=== PATIENT | male | born 1965 | race Caucasian/White ===

== ENCOUNTER 2017-09-18 11:20 | Outpatient (CLI) | payer BC ==
--- NOTE | 2017-09-18 14:10 | ULT ---
SCROTAL SONOGRAM WITH DUPLEX EVALUATION: Date: 09/18/17 HISTORY: Abnormal testosterone levels. FINDINGS: Right testicle is 3.2 cm length and left is 3.8 cm. Each has a normal sonographic appearance with goo d color and spectral Doppler flow. No evidence of extratesticular mass or fluid. IMPRESSION: Normal scrotal sonogram. POS: [facility]
== END 2017-09-18 11:21 | disposition home or self-care (01) ==
LOC: SCSULT 11:20
PROVIDERS: ATTEND Family Medicine
DX: R79.89 Other specified abnormal findings of blood chemistry (principal)
CPT/HCPCS: 76870; 93976

== ENCOUNTER 2021-08-13 09:30 | Inpatient (IN) | payer BC ==
[2021-08-13 14:57] LABS: #Basophils 0.1 10x3/uL (0.0-0.2); #Eosinphils 0.7 10x3/uL (0.0-0.5); #Monocytes 0.6 10x3/uL (0.0-1.1); #Neutrophils 1.7 10x3/uL (1.5-8.4); %Basophils 2.2 % (0.0-2.0); %Eosinophils 13.9 % (0.0-6.0); %Lymphocytes 37.8 % (18.0-47.0); %Monocytes 12.2 % (0.0-10.0); %Neutrophils 33.7 % (40.0-75.0); Hemoglobin 12.5 g/dL (13.5-17.5); Mean Corpuscular Hemoglobin 31.8 pg (27.0-33.0); Mean Corpuscular Volume 96.4 fl (81.2-95.1); Mean Platelet Volume 9.1 fl (7.4-10.4); Platelet Count 182 10x3/uL (150-450); RBC Distribution Width 12.8 % (11.5-14.5); Red Blood Cell (RBC) Count 3.93 10x6/uL (4.32-5.72); White Blood Cell (WBC) Count 4.9 10x3/uL (3.5-10.5)
[2021-08-13 15:26] LABS: Anion Gap 12 mmol/L (10-20); BUN (Urea Nitrogen) 15 mg/dL (8.4-25.7); Calc. Creatinine Clearance 0 mL/min (70-130); Calcium 9.6 mg/dL (7.8-10.44); Carbon Dioxide 25 mmol/L (22-29); Chloride 106 mmol/L (98-107); Glucose 80 mg/dL (70-105); Potassium 4.4 mmol/L (3.5-5.1); Sodium 139 mmol/L (136-145)
[2021-08-16 09:53] VITALS: BMI 25.7
[2021-08-17] MEDS ORDERED: fentaNYL Citrate/PF 100 MCG/2 ML SYRINGE ONE (06:52)
[2021-08-17] MEDS ORDERED: Heparin 5,000 UNITS/ML VIAL ONE (06:54)
[2021-08-17] MEDS ORDERED: Protamine Sulfate 50 MG/5 ML VIAL ONE (06:54)
[2021-08-17] MEDS ORDERED: Bupivacaine 0.25% HCL 30 ML VIAL ONE (06:54)
[2021-08-17] MEDS ORDERED: EPINEPHrine 1 MG/ML AMP ONE (06:54)
[2021-08-17] MEDS ORDERED: CEFAZOLIN 2 GM VIAL ONE (06:56)
[2021-08-17] MEDS ORDERED: Sodium Chloride 0.9% 100 ML ONE (06:56)
[2021-08-17] MEDS ORDERED: Dexamethasone 20 MG/5 ML VIAL ONE (08:20)
[2021-08-17] MEDS ORDERED: Glycopyrrolate 0.2 MG/ML 5 ML SYRINGE ONE (08:20)
[2021-08-17] MEDS ORDERED: Ondansetron PF 4 MG/2 ML Vial ONE (08:20)
[2021-08-17] MEDS ORDERED: Heparin 10,000 UNITS/ 10 ML VIAL ONE (09:34)
[2021-08-17] MEDS ORDERED: Acetaminophen 325 MG TAB PO PRN (10:24)
[2021-08-17] MEDS ORDERED: Ondansetron PF 4 MG/2 ML Vial IVP PRN (10:24)
[2021-08-17] MEDS ORDERED: Fentanyl 100 MCG/2 ML VIAL SLOW IVP PRN ×2 (10:24)
[2021-08-17] MEDS ORDERED: HYDROcodone/Acetaminophen 5/325 mg Tablet PO PRN (10:24)
[2021-08-17] MEDS ORDERED: Sodium Chloride 0.9% 1,000 ML IV SCH (10:30)
[2021-08-17] MEDS ORDERED: Promethazine HCl 25 MG/ML VIAL IM PRN (10:30)
[2021-08-17] MEDS ORDERED: ceFAZolin 2 GM/Dextrose 50 ML 2 GM in Premix Bag 1 BAG IVPB SCH (10:30)
[2021-08-17] MEDS ORDERED: Aspirin 81 mg Enteric Coated Tablet PO SCH (10:30)
[2021-08-17] MEDS ORDERED: Promethazine HCl 25 MG/ML VIAL IVPB PRN (10:30)
[2021-08-17] MEDS ORDERED: Ondansetron HCl/PF 4 MG/2 ML Vial IVP PRN (10:30)
[2021-08-17] MEDS ORDERED: Fentanyl 100 MCG/2 ML VIAL ONE (10:43)
[2021-08-17] MEDS ORDERED: Aspirin 325 mg Enteric Coated Tablet PO SCH (11:00)
[2021-08-17] MEDS: Ketorolac Tromethamine 30 MG/ML VIAL IVP SCH ×2 (14:20→22:24)
[2021-08-17] MEDS: CEFAZOLIN 2 GM in Sodium Chloride 0.9% 100 ML IVPB SCH ×2 (14:21→22:33)
[2021-08-17] MEDS: HYDROcodone/Acetaminophen 5/325 mg Tablet PO PRN ×2 (15:24→20:14)
[2021-08-17] MEDS: Zolpidem Tartrate 5 MG TAB PO PRN ×2 (20:16→22:21)
[2021-08-17] MEDS ORDERED: Amitriptyline HCl 100 MG TAB PO SCH (21:00)
[2021-08-18] MEDS: HYDROcodone/Acetaminophen 5/325 mg Tablet PO PRN (04:33)
[2021-08-18] MEDS: Ketorolac Tromethamine 30 MG/ML VIAL IVP SCH (06:01)
[2021-08-18] MEDS: CEFAZOLIN 2 GM in Sodium Chloride 0.9% 100 ML IVPB SCH (06:02)
[2021-08-18 06:33] LABS: #Basophils 0.1 thou/uL (0.0-0.2); #Eosinphils 0.1 thou/uL (0.0-0.7); #Lymphocytes 2.4 thou/uL (1.20-3.40); #Monocytes 1.2 thou/uL (0.11-0.59); #Neutrophils 5.5 thou/uL (1.40-6.50); %Basophils 0.6 % (0.0-1.0); %Eosinophils 1.3 % (0.0-10.0); %Lymphocytes 25.6 % (21.0-51.0); %Monocytes 12.8 % (0.0-10.0); %Neutrophils 59.6 % (42.0-75.0); Hemoglobin 10.9 g/dL (14.0-18.0); Mean Corpuscular HGB CONC 31.4 g/dL (32.0-36.0); Mean Corpuscular Hemoglobin 32.4 pg (27.0-31.0); Mean Platelet Volume 7.2 fL (7.4-10.4); Platelet Count 159 thou/uL (130-400); Red Blood Cell (RBC) Count 3.36 mill/uL (4.70-6.10); White Blood Cell (WBC) Count 9.3 thou/uL (4.8-10.8)
[2021-08-18 08:10] VITALS: TEMP 98.1
[2021-08-18] MEDS ORDERED: Aspirin Chewable 81 MG TAB PO SCH (09:00)
[2021-08-18 09:08] VITALS: BP 116/81
== END 2021-08-18 10:27 | disposition home or self-care (01) | DRG 253 ==
LOC: SURG A 08-17 06:11 → T4-B 08-17 14:03
PROVIDERS: ADMIT Thoracic Surgery (Cardiothoracic Vascular Surgery); ATTEND Thoracic Surgery (Cardiothoracic Vascular Surgery)
PROC: 041M0JL Bypass Right Popliteal Artery to Popliteal Artery with Synthetic Substitute, Open Approach (ICD-10-PCS; principal; 2021-08-17)
DX: I70.211 Atherosclerosis of native arteries of extremities with intermittent claudication, right leg (principal); I70.92 Chronic total occlusion of artery of the extremities; Z20.822 Contact with and (suspected) exposure to COVID-19; M06.9 Rheumatoid arthritis, unspecified; F32.A Depression, unspecified; F41.9 Anxiety disorder, unspecified; Z98.890 Other specified postprocedural states; Z79.899 Other long term (current) drug therapy
CPT/HCPCS: 36415; 80048; 85025; 86850; 86900; 86901; C1763; J0171; J0690; J1100; J1644; J1885; J2405; J2720; J3010; J3490; J7050; S0020; U0003; U0005